=== PATIENT | male | born 1965 | race American Indian/Alaskan Native ===

== ENCOUNTER 2021-12-14 22:51 | Emergency (ER) | payer MEDICARE ==
[2021-12-15] MEDS ORDERED: HYDROcodone/ACETAMINOPHEN 5-325 MG TAB PO ONE (08:57)
--- NOTE | 2021-12-15 09:03 | Emergency Department Report ---
ED General Adult HPI - General Chief complaint: Abdominal Pain Stated complaint: UPPER LEFT SIDED PAIN Time Seen by Provider: 12/15/21 07:26 Source: patient, EMS Mode of arrival: Stretcher Limitations: No Limitations - History of Present Illness Initial comments: 56-year-old male past medical history hypertension reports to the ER with left flank pain for 1 day. Patient reports no nausea no vomiting no diarrhea. No abdominal pain. Patient denies any urinary frequency or urgency no blood in urine. No fever no chills no weakness noted. Patient reports no pain with breathing. Patient reports no other acute signs or symptoms at this time. - Related Data Previous Rx's Medication Instructions Recorded Last Taken Type Ibuprofen [Motrin] 600 mg PO Q8H PRN 6 Days #18 tablet 12/15/21 Unknown Rx Allergies Allergy/AdvReac Type Severity Reaction Status Date / Time No Known Allergies Allergy Unverified 12/14/21 23:45 ED Review of Systems ROS: Stated complaint: UPPER LEFT SIDED PAIN Other details as noted in HPI Comment: All other systems reviewed and negative Gastrointestinal: other. denies: abdominal pain, nausea, vomiting, diarrhea (Left flank pain.) ED Past Medical Hx - Past Medical History Previous Medical History?: Yes Hx Hypertension: Yes - Medications Home Medications: Home Medications Medication Instructions Recorded Confirmed Last Taken Type Ibuprofen [Motrin] 600 mg PO Q8H PRN 6 Days #18 tablet 12/15/21 Unknown Rx ED Physical Exam - General Limitations: No Limitations General appearance: alert, in no apparent distress - Head Head exam: Present: atraumatic, normocephalic - Eye Eye exam: Present: normal appearance - ENT ENT exam: Present: mucous membranes moist - Neck Neck exam: Present: normal inspection - Respiratory Respiratory exam: Present: normal lung sounds bilaterally. Absent: respiratory distress - Cardiovascular Cardiovascular Exam: Present: regular rate, normal rhythm. Absent: systolic murmur, diastolic murmur, rubs, gallop - GI/Abdominal GI/Abdominal exam: Present: soft, normal bowel sounds. Absent: distended, ten derness, guarding, rebound, rigid - Rectal Rectal exam: Present: deferred - Extremities Exam Extremities exam: Present: normal inspection - Back Exam Back exam: Present: normal inspection, other (Left flank posterior rib area point tenderness and muscular in between the rib rib bones. No rib bowel movement noted. No bruising noted. No pain with respiration.) - Neurological Exam Neurological exam: Present: alert, oriented X3 - Psychiatric Psychiatric exam: Present: normal affect, normal mood - Skin Skin exam: Present: warm, dry, intact, normal color. Absent: rash ED Course Vital Signs 12/14/21 23:43 Temperature 98.2 F Pulse Rate 89 Respiratory 16 Rate Blood Pressure 146/94 [Right] O2 Sat by Pulse 96 Oximetry ED Medical Decision Making - Medical Decision Making 56-year-old male past medical history hypertension reports to the ER with left flank pain for 1 day. Patient reports no nausea no vomiting no diarrhea. No abdominal pain. Patient denies any urinary frequency or urgency no blood in urine. No fever no chills no weakness noted. Patient reports no pain with breathing. Patient reports no other acute signs or symptoms at this time. Patient denies no injuries no recent falls. No shortness of breath On physical exam patient has no acute abdominal tenderness no acute abdominal signs noted. Patient has posterior left rib pain in between the rib bones at about the 10th and 11th rib. No bone tenderness noted no pain with inspiration or expiration. Also clear to auscultation. No other acute clinical findings noted on physical exam. No imaging is needed at this time as patient has no recent injury and no bone tenderness noted. Pain is related to muscle tenderness. Patient to receive oral medications here in the ER for pain control. Patient to be discharged home with oral medication for pain. Patient agrees with plan of care and verbalized understanding. Patient informed if symptoms are to get worse to report back to the ER. Patient informed to follow-up with his primary care provider at [facility] in the [facility]. Patient stable for discharge. No further evaluation is needed at this time. Vital Signs 12/14/21 23:43 Temperature 98.2 F Pulse Rate 89 Respiratory 16 Rate Blood Pressure 146/94 [Right] O2 Sat by Pulse 96 Oximetry Critical care attestation.: If time is entered above; I have spent that time in minutes in the direct care of this critically ill patient, excluding procedure time. ED Disposition Clinical Impression: Chest wall pain, Rib pain on left side Disposition: HOME / SELF CARE / HOMELESS Is pt being admited?: No Condition: Stable Instructions: Chest Wall Pain, Nonspecific Chest Pain, Adult Prescriptions: Ibuprofen [Motrin] 600 mg PO Q8H PRN 6 Days #18 tablet PRN Reason: Pain
[2021-12-15 10:00] VITALS: BP 162/117
== END 2021-12-15 10:03 | disposition home or self-care (01) ==
LOC: ED 22:51
DX: R07.89 Other chest pain (principal); R07.81 Pleurodynia; R10.9 Unspecified abdominal pain; I10 Essential (primary) hypertension; Z79.899 Other long term (current) drug therapy
CPT/HCPCS: 99283